=== PATIENT | female | born 1985 | race Two or more races ===

== ENCOUNTER 2021-10-12 04:32 | Emergency (ER) | payer BC, OTHER ==
[~2021-10-12] VITALS: Ht 175.3 cm; Wt 90.7 kg
--- NOTE | 2021-10-12 05:08 | NUR ---
[facility] [employer]. TO ER BED 11. AAOX4. NOT IN RESP DISTRESS, BREATHING EVEN AND UNLABORED. AMBULATORY. BROUGHT IN FOR SUICIDAL ATTEMPT BY INGESTION OF 8-9 PILLS OF GABAPENTIN 300MG. PT VERBALIZED THAT SHE IS FEELING SAD. DENIES HALLUCIONATIONS. PT IS PLACED IN A GOWN, BELONGINGS WAS TAKEN AND PLCACED IN LOCKER. SITTER AT BEDSIDE. URINE WAS COLLECTED AND SENT TO LAB.
[2021-10-12] MEDS ORDERED: ONDANSETRON HCL/PF 4 MG/2 ML VIAL ONE ×2 (05:27→09:36)
[2021-10-12] MEDS ORDERED: ONDANSETRON HCL/PF 4 MG/2 ML VIAL IV ONE (05:30)
--- NOTE | 2021-10-12 05:35 | NUR ---
BLOOD COLLECTED AND SENT TO LAB
[2021-10-12 05:41] LABS: BASOPHILS % (AUTO) 0.7 % (0.0-2.0); EOSINOPHILS % (AUTO) 0.9 % (0.0-6.0); HEMATOCRIT 40 % (33-45); HEMOGLOBIN 13.5 g/dL (11.5-14.8); LYMPHOCYTES # (AUTO) 2.4 K/uL (0.8-4.8); LYMPHOCYTES % (AUTO) 43.8 % (20.0-44.0); MEAN CORPUSCULAR HGB CONC 34 g/dl (31.0-36.0); MEAN CORPUSCULAR VOLUME 92 fL (82-100); MONOCYTES # (AUTO) 0.5 K/uL (0.1-1.30); NEUTROPHILS # (AUTO) 2.5 K/uL (1.8-8.9); NEUTROPHILS % (AUTO) 45.6 % (43.0-81.0); PLATELET COUNT (AUTO) 258 K/uL (150-450); RED BLOOD CELL COUNT(AUTO) 4.37 MIL/uL (4.0-5.2); WHITE BLOOD COUNT (AUTO) 5.5 K/uL (4.3-11.0)
[2021-10-12 05:54] LABS: ALANINE AMINOTRANSFERASE 37 U/L (12-78); ALBUMIN 4.4 g/dL (3.4-5.0); ALCOHOL, BLOOD 109 mg/dL (0-0); ALKALINE PHOSPHATASE 54 U/L (46-116); ASPARTATE AMINOTRANSFERASE 21 U/L (15-37); BILIRUBIN,DIRECT 0.1 mg/dL (0.0-0.2); BILIRUBIN,TOTAL 0.5 mg/dL (0.2-1.0); CALCIUM, SERUM 9.7 mg/dL (8.5-10.1); CARBON DIOXIDE 25 mmol/L (21-32); CHLORIDE 107 mmol/L (98-107); CREATININE 0.8 mg/dL (0.6-1.3); GLUCOSE 94 mg/dL (74-106); POTASSIUM 4.1 mmol/L (3.5-5.1); SODIUM SERUM 142 mmol/L (136-145); TOTAL PROTEIN, SERUM 8.4 g/dL (6.4-8.2); UREA NITROGEN, BLOOD 14 mg/dL (7-18)
[2021-10-12 05:55] LABS: ACETAMINOPHEN < 2 ug/ml (10-30)
--- NOTE | 2021-10-12 06:02 | NUR ---
FLOLLOWED UP WITH LAB REGARDING URINE
--- NOTE | 2021-10-12 09:48 | NUR ---
SW called mold cleaning and storage supervisor, Art [phone] to evaluate pt. who stated they attempted suicide by OD. Art stated he will be here soon.
[2021-10-12] MEDS ORDERED: ONDANSETRON HCL/PF - ER 4 MG/2 ML VIAL IV ONE (10:00)
[2021-10-12] MEDS ORDERED: CHLORDIAZEPOXIDE HCL 25 MG CAPSULE ONE (11:44)
--- NOTE | 2021-10-12 11:50 | NUR ---
Patient discharged to home in stable condition. Written and verbal after care instructions given. Patient verbalizes understanding of instruction.IV removed. Catheter intact and site benign. Pressure and 4x4 applied to site. No bleeding noted.
[2021-10-12] MEDS ORDERED: IV NS 0.9% 500 ML BAG IV ONE (12:00)
[2021-10-12] MEDS ORDERED: CHLORDIAZEPOXIDE HCL 25 MG CAPSULE PO ONE (12:00)
[2021-10-12 12:47] VITALS: BP 126/83
== END 2021-10-12 11:50 | disposition home or self-care (01) ==
LOC: ER 04:33
DX: F10.10 Alcohol abuse, uncomplicated (principal); F32.A Depression, unspecified; Z60.2 Problems related to living alone; Y90.4 Blood alcohol level of 80-99 mg/100 ml
CPT/HCPCS: 36415; 80048; 80076; 80143; 80307; 80320; 84703; 85025; 96361; 96374; 96376; 99285; J2405 ×3; J7030; G0480